=== PATIENT | male | born 1970 | race Caucasian/White ===

== ENCOUNTER → 2022-04-30 14:51 | Outpatient (BNVA) | payer MEDICARE, MEDICAID, SELFPAY | PROVIDERS: Visit Provider Orthopaedic Surgery | DX: S46.912A Strain of unspecified muscle, fascia and tendon at shoulder and upper arm level, left arm, initial encounter (principal); X58.XXXA Exposure to other specified factors, initial encounter; M25.512 Pain in left shoulder | CPT/HCPCS: 73030; 99203 ==

== ENCOUNTER → 2022-06-25 13:26 | Outpatient (BNVA) | payer BC, MEDICAID, SELFPAY | PROVIDERS: Visit Provider Orthopaedic Surgery | DX: W19.XXXA Unspecified fall, initial encounter (principal); S46.012A Strain of muscle(s) and tendon(s) of the rotator cuff of left shoulder, initial encounter | CPT/HCPCS: 99213 ==

== ENCOUNTER 2022-07-11 07:40 | Day surgery (SDC) | payer BC, SELFPAY ==
[2022-07-09 12:34] VITALS: BMI 34.0
[2022-07-11] VITALS (10 sets, daily range): BP systolic 138–161; BP diastolic 75–97; PULSE 61–69; RESP 12–18; TEMP 36.1–36.6; O2SAT 93–99
[2022-07-11] MEDS: sodium chloride 0.9% 1,000 ML 30 ML IV (08:23)
--- NOTE | 2022-07-11 08:46 | ANES.PREANE2 ---
Pre-Anesthetic Assessment Height/Weight: Height 1.93 m Weight 127.006 kg Temp Pulse Resp BP Pulse Ox O2 Del Method 98 F 61 16 138/86 97 07/11/22 08:11 07/11/22 08:11 07/11/22 08:11 07/11/22 08:11 07/11/22 08:11 07/11/22 08:15 Preop Diagnosis: Left rotator cuff tear, impingement Operation Date: 07/11/22 09:20 Proposed Procedures p Shoulder Arthroscopy(Left) - Kaz Ndiaye MD s Rotator Cuff Repair(Left) - Kaz Ndiaye MD Familial anesthetic complications: None Was Beta Onofre taken within 24 hours: N/A Was Clonidine taken within 24 hours: N/A Last intake: Intake Last Liquid Date 07/10/22 Last Liquid Time 21:00 Last Solid Date 07/10/22 Last Solid Time 21:00 Social No alcohol and No tobacco Exam alert, oriented x 3, clear to auscultation bilaterally and regular rate & rhythm Airway Mallampati: Class II Dentition: full Neuropsych Hx traumatic accident - patient seems to have difficulty finding words Anesthetic Plan ASA status: 2 Anesthesia: General and Regional (specify below) Risk of > 500 ml blood loss (7ml/kg in children): No Medications/Allergies Home Medications Medication Instructions Recorded Confirmed Last Taken Type hydrocodone 5 mg-acetaminophen 325 1 tab PO Q4H PRN pain 7 days #30 04/30/22 07/09/22 Unknown Rx mg tablet tabs Allergies Allergy/AdvReac Type Severity Reaction Status Date / Time tramadol [From Ultram] Allergy ADR-Agitate Verified 07/09/22 12:34 d Current Medications Generic Name Dose Route Start Last Admin Trade Name Freq PRN Reason Stop Dose Admin Sodium Chloride 1,000 mls @ 30 mls/hr 07/11/22 08:15 07/11/22 08:23 Sodium Chloride 0.9% IV 07/12/22 08:14 30 mls/hr .Q24H OTILIO Administration PFSH Anesthesia Social History Smoking and tobacco status: never smoked Alcohol intake: never Data Anesthesia Cardiac Studies: No Data to Display
--- NOTE | 2022-07-11 08:47 | ANES.PROC ---
Anesthesia Procedures Procedure/Date: 07/11/22 Nerve Block ^: Nerve Block 1: Main Anesthesia: general anesthesia Time Out Performed: Yes Consent: requested by attending/covering physician, from patient, risks and benefits reviewed and patient agrees to proceed Nerve block location: interscalene (L) Anesthesia monitors applied: pulse oximetry, EKG, BP cuff and oxygen Nerve block position: semi sitting Anesthetic Used: ropivicaine 0.5% (20 ml) and with decadron (4 mg) Ultrasound used to: recognize landmarks, visualize and ID brachial plexus and visualize and ID interscalene groove Nerve Stimulator Used?: No Interscalene/Femoral BLK: 2 stimuplex 22 g needle used for position and inplane approach, visualize local anesthetic spread and no vascular puncture identified Injection: neg aspiration of heme Patient Tolerated Procedure: well and no complications Complications: none
--- NOTE | 2022-07-11 10:12 | W.PM.OPSUD ---
Surgery/Procedure H&P Update DATE OF PROCEDURE: July 11, 2022 DATE H&P PERFORMED: 06/25/22 H&P UPDATE INFORMATION: I have reviewed H&P completed within last 30 days PREOP DIAGNOSIS: Left rotator cuff tear, impingement PLANNED PROCEDURE: Operation Date: 07/11/22 09:20 Proposed Procedures p Shoulder Arthroscopy(Left) - Kaz Ndiaye MD s Rotator Cuff Repair(Left) - Kaz Ndiaye MD
--- NOTE | 2022-07-11 12:35 | P.OP_ITS ---
Operative Report Date of procedure: July 11, 2022 Pre-op diagnosis: Preop Diagnosis Left rotator cuff tear, impingement Post-op diagnosis: same Procedure done: Arthroscopic repair left rotator cuff with bio inductive patch, subacromial decompression left Implants: Neville and Nephew Regeneten patch Pathology: none sent Anesthesia: General and Nerve Block (Interscalene) Estimated blood loss (mL): 20 Findings: The patient had a large. The tear was approximately 1.5 centimeters from anterior to posterior with and 2 cm medial to lateral, The insertion was intact with approximately 1 cm bridge between the lateral extent of the tendon and its insertion. He had a gentle anterior curvature to his acromion. Condition: stable Disposition: PACU Procedure: The patient was given interscalene patient was given a interscalene block in holding and taken to the operating room. He was given 2 g of Ancef and a general anesthesia. He was positioned in the lateral position with his left shoulder in traction. He was prepped and draped in the usual fashion a timeout was performed. A posterior portal was made 2 cm inferior and medial to the posterior corner of the acromion a scope cannula and trocar were driven into the glenohumeral joint. An anterior and lateral portal were opened up with a scalpel blade. The large central tear was identified. It was felt best approached through a [id number] repair with a biological patch for augmentation. As the tear did not extend into the insertion the greater tuberosity was not exposed and decision was made not to proceed with bone anchors. Initial attention was paid to the leading edge of acromion to first make room for the repair and second added vascularity to facilitate healing of this intratendinous tear. Working through the lateral portal a 5.5 mm acromionizer was used and approximately 4 mm of anterior and inferior acromion removed converting the acromion to a type I morphology. Attention was then focused on the rotator cuff. Utilizing the Neville and Nephew Werewolf probe the large central tear was outlined. It began at the muscular tendinous junction. The edges were debrided back to a stable margin and debridement was accomplished back to the lateral tendon. A Neville and NephQuanTemplate FirstPass suture passer was used to shuttle a Minitape through the posterior medial aspect of the tear. A bird beak suture retriever was then passed through the anterior and medial cuff and used to shuttle of a free end of the tape through the anterior cuff. This was repeated with a second stitch approximately a centimeter laterally. This approximated the tendon very well without undue tension. As the vascularity was not particularly ideal in tendon margins not ideal biological augmentation was chosen. Through a small more anterior and inferior portal a Neville and Nephew Regeneten patch was introduced. It was placed directly over the previous sutures. It was secured circumferentially with jada overlying the area of repair. Portals were then closed with a 3-0 Prolene. 4 x 4's and Medipore dressing were applied. Patient was placed in a sling, extubated, and taken to recovery in stable condition.
--- NOTE | 2022-07-11 13:40 | ANE.PACU2 ---
Inpatient post-anesthesia follow up: Airway intact: Yes Vital signs: Temperature 97.0 F Pulse Rate 69 Respiratory Rate 18 Blood Pressure 153/92 Pulse Oximetry 93 Oxygen Delivery Me thod Room Air Oxygen Flow Rate 6 Fraction of Inspir ed Oxygen Hydration adequate: Yes Nausea and vomiting: No Pain level: 1 Mental status: Baseline
== END 2022-07-11 14:37 | disposition home or self-care (01) ==
PROVIDERS: Visit Provider Orthopaedic Surgery
PROC: (CPT 29805; principal; 2022-07-11 09:10)
PROC: (CPT 29826; 2022-07-11 09:10)
DX: M75.102 Unspecified rotator cuff tear or rupture of left shoulder, not specified as traumatic (principal)
CPT/HCPCS: 29826; 29827; C1713; J0330; J1100; J2250; J2704; J2710; J2795; J3010; J3490; J7030

== ENCOUNTER → 2023-10-06 10:06 | Outpatient (BNVA) | payer MEDICARE, SELFPAY | PROVIDERS: Visit Provider Specialist | DX: M25.551 Pain in right hip (principal) | CPT/HCPCS: 73502; 99204 ==

== ENCOUNTER → 2025-04-18 13:50 | Outpatient (BNVA) | payer MEDICARE, SELFPAY | PROVIDERS: PCP Nurse Practitioner Family; Visit Provider Orthopaedic Surgery | DX: M16.11 Unilateral primary osteoarthritis, right hip (principal); Z01.818 Encounter for other preprocedural examination; M25.551 Pain in right hip | CPT/HCPCS: 36415; 73502; 80053; 81001; 85025; 99214 ==

== ENCOUNTER → 2025-04-29 11:40 | Outpatient (BNVA) | payer MEDICARE, SELFPAY | PROVIDERS: PCP Nurse Practitioner Family; Visit Provider Family Medicine | DX: I49.9 Cardiac arrhythmia, unspecified (principal); I48.91 Unspecified atrial fibrillation; R94.31 Abnormal electrocardiogram [ECG] [EKG]; I49.8 Other specified cardiac arrhythmias | CPT/HCPCS: 93005 ==

== ENCOUNTER → 2025-05-04 12:06 | Outpatient (BNVA) | payer MEDICARE, SELFPAY | PROVIDERS: PCP Nurse Practitioner Family; Visit Provider Internal Medicine Cardiovascular Disease | DX: Z01.818 Encounter for other preprocedural examination (principal); I48.91 Unspecified atrial fibrillation; R53.83 Other fatigue; I10 Essential (primary) hypertension | CPT/HCPCS: 99204 ==

== ENCOUNTER → 2025-05-06 08:38 | Outpatient (BNVA) | payer MEDICARE, SELFPAY | PROVIDERS: PCP Nurse Practitioner Family; Visit Provider Orthopaedic Surgery | DX: M25.532 Pain in left wrist (principal) | CPT/HCPCS: 73110 ==

== ENCOUNTER → 2025-05-31 14:13 | Outpatient (BNVA) | payer MEDICARE, SELFPAY | PROVIDERS: PCP Nurse Practitioner Family; Visit Provider Internal Medicine Cardiovascular Disease | DX: Z01.810 Encounter for preprocedural cardiovascular examination (principal); M25.559 Pain in unspecified hip; I48.19 Other persistent atrial fibrillation; I10 Essential (primary) hypertension | CPT/HCPCS: 99214 ==

== ENCOUNTER → 2025-07-07 09:26 | Outpatient (BNVA) | payer MEDICARE, SELFPAY | PROVIDERS: PCP Nurse Practitioner Family; Visit Provider Internal Medicine Cardiovascular Disease | DX: Z01.810 Encounter for preprocedural cardiovascular examination (principal); I48.91 Unspecified atrial fibrillation; I10 Essential (primary) hypertension | CPT/HCPCS: 99214 ==

== ENCOUNTER 2025-07-22 08:28 | Outpatient (CLI) | payer MEDICARE, SELFPAY ==
--- NOTE | 2025-07-22 08:33 | NMCV_ITS ---
NM jeremy perf SPECT r/s* [id number] Chente Verde Age: 54 Gender: M : 1970 Exam Date: 07/22/2025 09:17 Ordering Phys: Tre Perdomo MD ([email or web address]) Technologist: SHYLA Newberry Exam Location: [facility] Indications: cp STRESS TEST [facility] IMAGE PROTOCOL Rest/Stress 1 Lexiscan Day Radiopharmaceutical Dose (mCi) Administration Site Administered by Rest: Tc-99m 10.7 IV SHYLA Newberry Sestamibi Stress:Tc-99m 33 IV SHYLA Li Sestamibi Rest: 22-Jul-2025 60 Discovery 630 Stress: 22-Jul-2025 30 Discovery 630 0.4mg Lexiscan. Supine position only as patient was unable to lay prone. SPECT RESULTS Technical Quality: Good Raw Data Analysis: Normal Image Corrections: No attenuation or motion correction applied Summed Stress Score: 0 Summed Rest Score: 3 Summed Difference Score: 0 PERFUSION FINDINGS There is a small area of moderately reduced tracer counts in the inferior wall on both the stress and rest images. There is no reversibility. FUNCTIONAL RESULTS (calculated via Gated SPECT) Stress Image LV EF (%): 34 Stress EDV (mL):127 TID: 1.36 Stress ESV (mL):84 FUNCTIONAL FINDINGS: Left ventricular cavity enlargement with moderate reduction in ejection fraction of 34%. The patient was in atrial fibrillation with rapid ventricular response which can make the left ventricular size and ejection fraction calculations inaccurate. Recommend echocardiogram for left ventricular size and systolic function assessment. IMPRESSIONS 1. Myocardial perfusion imaging consistent with a small area of infarction versus attenuation artifact in the inferior wall. No ischemia present. 2. Left ventricular cavity enlargement with moderate reduction in ejection fraction of 34%. LV size and systolic function assessment possibly inaccurate due to atrial fibrillation with rapid ventricular response. Recommend echocardiogram to better assess LV size and systolic function. Ter Perdomo MD, FACC (Electronically Signed) Final Date: 22 July 2025 12:42 S
--- NOTE | 2025-07-22 08:33 | ECG_ITS ---
[employer] Test Date: 2025-07-22 Pat Name: Chente Verde Department: Room: Gender: Male Crew Attendant: : 1970 Requested By: Tre Perdomo Order Number: [id number] William MD: Tre Perdomo M.D. Interpretive Statements Procedure: A total of 0.4 mg of Lexiscan was infused over 20 seconds. The stress phase was continued for a total of 5 minutes. Sestamibi was injected 20 seconds after the Lexiscan infusion. Findings:The patient's resting baseline blood pressure was 162/78 mmHg with a heart rate 112 bpm. After Lexiscan infusion the patient's blood pressure gradually decreased to 115/97 and a heart rate increased to 118 bpm. The heart rate did transiently increase up to 130 bpm. The baseline EKG showed atrial fibrillation with a heart rate of 112 bpm and nonspecific mild ST-T wave abnormalities. There was also left axis deviation and poor R wave progression. There was no change in baseline ST-T wave abnormalities with stress or in recovery. Conclusion: 1. Normal EKG response to Lexiscan infusion 2. No Lexiscan induced chest pain or new cardiac arrhythmia. 3. Normal blood pressure and heart rate response. 4. Nuclear myocardial perfusion scan pending; see separate report. Electronically Signed On 07-22-2025 13:36:10 SURGICAL TECHNOLOGY INSTRUCTOR by Tre Perdomo M.D. [email or web address]
[2025-07-22 08:42] VITALS: BMI 34.0
--- NOTE | 2025-07-22 10:18 | PC.NURSE ---
Heart rate Pt arrived to [facility] for Lexiscan portion of stress test. After pt hooked up to EKG leads, pt found to be in Afib w/RVR, rate 120's-130, asymptomatic. Dr. Perdomo notified of pt HR and rhythm. Metoprolol 5mg IVP x1 ordered to be given prior to start of Lexiscan stress test. Also Metoprolol XL 25mg PO daily ordered to be called in to pt pharmacy of choice.
[2025-07-22] MEDS: metoprolol tartrate 1 mg/1 mL SDV 5 mL 5 MG IVP (10:23)
[2025-07-22 10:47] VITALS: BP 135/98; PULSE 102
== END 2025-07-22 08:29 | disposition home or self-care (01) ==
PROVIDERS: PCP Nurse Practitioner Family; Visit Provider Internal Medicine Cardiovascular Disease
DX: R07.9 Chest pain, unspecified (principal); R94.39 Abnormal result of other cardiovascular function study
CPT/HCPCS: 36415; 78452; 93017; 96374; A9500; J2785; J3490

== ENCOUNTER 2025-08-16 09:33 | Outpatient (CLI) | payer MEDICARE, SELFPAY ==
--- NOTE | 2025-08-16 10:00 | USCV_ITS ---
Verde Chente Age: 54 Gender: M : 1970 Exam Date: 08/16/2025 09:58 Ordering Phys: Chiquis Navarro MD ([email or web address]) Technologist: Exam Location: [facility] [place] Indication: cp sob BP: 140 / 80 HR: 78 Rhythm: Sinus Technical Quality: Adequate MEASUREMENTS (Male / Female) Normal Values 2D ECHO LV Diastolic Diameter PLAX 3.9 cm 4.2 - 5.9 / 3.9 - 5.3 cm IVS Diastolic Thickness 1.3 cm 0.6 - 1.0 / 0.6 - 0.9 cm IVS Systolic Thickness 2.1 cm LVPW Diastolic Thickness 1.4 cm 0.6 - 1.0 / 0.6 - 0.9 cm LVPW Systolic Thickness 1.8 cm LVOT Diameter 2.1 cm LV Ejection Fraction 2D Teich 68.5 % LV Ejection Fraction MOD 4C 57.5 % LV Ejection Fraction MOD 2C 71.9 % LV Ejection Fraction 2C AL 71.1 % LA Diameter 4.6 cm RA Systolic Volume 4C AL 35.5 ml RA Systolic Volume 4C MOD 35.2 ml Aorta at Sinotubular Diameter 3.4 cm M-MODE LA Ao Ratio MM 1.3 AV Cusp Separation MM 3.1 cm DOPPLER AV Peak Velocity 139.3 cm/s LVOT Peak Velocity 97.0 cm/s AV Area Cont Eq vti 3.0 cm squared AV Area Cont Eq pk 2.4 cm squared MV Peak Velocity 112.0 cm/s MV Area PHT 3.8 cm squared Mitral E to A Ratio 2.8 TV Peak Velocity 193.0 cm/s TR Peak Velocity 228.0 cm/s TR Peak Gradient 20.8 mmHg PV Peak Velocity 101.0 cm/s FINDINGS Left Ventricle Normal left ventricular size, systolic function and wall thickness, with no regional wall motion abnormalities. Left ventricular ejection fraction is estimated at 60 %. In the presence of atrial fibrillation diastolic function cannot be assessed accurately. In the presence of atrial fibrillation diastolic function cannot be assessed accurately. Right Ventricle Normal right ventricular size and systolic function. Right Atrium Normal right atrial size. Left Atrium Normal left atrial size. IA Septum Normal appearance of the interatrial septum. Mitral Valve Mildly thickened mitral valve. No mitral valve stenosis. Trace mitral valve regurgitation. Aortic Valve Mild aortic valve calcification. No aortic valve stenosis. Trace aortic valve regurgitation. Tricuspid Valve Normal tricuspid valve structure. No tricuspid valve stenosis or regurgitation. Normal pulmonary pressure. Pulmonic Valve Normal pulmonic valve structure. No pulmonic valve stenosis or regurgitation. Pericardium No pericardial effusion. Aorta Normal diameter of the aortic root and ascending thoracic aorta. IVC Normal IVC diameter. CONCLUSIONS Normal left ventricular size, systolic function and wall thickness, with no regional wall motion abnormalities. Left ventricular ejection fraction is estimated at 60 %. In the presence of atrial fibrillation diastolic function cannot be assessed accurately. In the presence of atrial fibrillation diastolic function cannot be assessed accurately. No significant valve abnormalities. There is no pericardial effusion. Right atrial pressure is around 5 mm of mercury. Chiquis Navarro MD (Electronically Signed) Final Date: 18 August 2025 08:43 S
== END 2025-08-16 09:34 | disposition home or self-care (01) ==
LOC: RAD 09:36
PROVIDERS: PCP Nurse Practitioner Family; Visit Provider Internal Medicine Cardiovascular Disease
DX: I48.91 Unspecified atrial fibrillation (principal); Z01.818 Encounter for other preprocedural examination; Z01.810 Encounter for preprocedural cardiovascular examination; I51.9 Heart disease, unspecified
CPT/HCPCS: 93306